=== PATIENT | male | born 1950 | race Caucasian/White ===

== ENCOUNTER 2017-03-07 22:39 | Emergency (ER) | payer OTHER, MEDICARE ==
[~2017-03-07] VITALS: Ht 165.1 cm; Wt 76.2 kg
[~2017-03-07 22:39] MED LIST: ASPI325T PO; ATOR40TA PO; CALC500T36 PO; CHIL1CHW5 PO; LIPI20TA PO; MOTR200T44 PO; NADO20TA PO; NICO14DI20 TD; NICO21PAT TD; NUCY75TA8 PO; OMEP40CA2 PO; PLAV75TA38 PO; SIMV20TA2 PO; TIZA4CAP3 PO; XANA0.5T PO
[2017-03-07] MEDS ORDERED: ASPI32ECTA PO (23:06)
[2017-03-08 00:33] VITALS: BP 136/88
--- NOTE | 2017-03-08 06:58 | REP ---
Clinical: Post traumatic chest pain. Technique: PA and lateral. Comparison: 07/24/2015. Findings: Mediastinum and cardiac silhouette are normal. Subtle ill-defined increased bibasilar markings (left greater than right) may reflect acute atelectasis. A very subtle nondisplaced fracture along the anterolateral margin of the left sixth rib cannot definitively be excluded and may warrant physical examination and follow-up. Impression: Subtle ill-defined increased basilar markings may reflect acute atelectasis. Cannot exclude subtle nondisplaced lateral left sixth rib fracture. Signed by Navneet Rivera MD 03/08/2017 06:49 A
--- NOTE | 2017-03-08 14:15 | ECGEPIP ---
Stationary ECG Study [facility] - ED Test Date: 2017-03-07 Pat Name: CONCHITA ALEJANDRO Department: Room: - Gender: M [employer] Faculty Member: emil : 1950 Requested By: SHARI Worthington Order Number: [id number] Reading MD: Daniel Solorzano Measurements Intervals [place] Rate: 77 P: 64 MT: 200 QRS: 16 QRSD: 94 T: 49 QT: 377 QTc: 427 Interpretive Statements SINUS RHYTHM Electronically Signed On 03-08-2017 14:14:41 EDT by Daniel Solorzano
== END 2017-03-08 00:34 | disposition home or self-care (01) ==
LOC: EDBD 22:39 → M ED 03-08 00:18
DX: R07.9 Chest pain, unspecified (principal); V49.50XA Passenger injured in collision with unspecified motor vehicles in traffic accident, initial encounter; Y92.410 Unspecified street and highway as the place of occurrence of the external cause; Y93.89 Activity, other specified; Y99.9 Unspecified external cause status; I25.10 Atherosclerotic heart disease of native coronary artery without angina pectoris; I25.2 Old myocardial infarction; Z79.82 Long term (current) use of aspirin; Z79.899 Other long term (current) drug therapy

== ENCOUNTER → 2017-08-02 | Outpatient (CLI) | payer MEDICARE, OTHER ==
[~2017-08-02] MED LIST changes: +ASPI325T24 PO; -ATOR40TA PO; +ATOR40TA75 PO; -CHIL1CHW5 PO; +CHIL81CH2 PO; +NUCY75TA3 PO; -NUCY75TA8 PO; +PLAV1TAB2 PO; -PLAV75TA38 PO
--- NOTE | 2017-08-02 13:33 | REP ---
Left upper extremity duplex Doppler venous ultrasound. Real time compression and duplex Doppler evaluation of the left upper extremity deep venous system is performed. The left subclavian, jugular, axillary, brachial, basilic and cephalic veins are fully compressible where accessible with transducer pressure, and demonstrate no intraluminal thrombus and normal venous waveforms. There is no evidence of deep venous thrombosis. Impression: No evidence of deep venous thrombosis of the left upper extremity deep vein system. Signed by Kwame Obando MD 08/02/2017 01:24 P
== END ==
LOC: M RAD 12:36
PROVIDERS: ATTEND Psychiatry & Neurology Neurology
DX: R22.32 Localized swelling, mass and lump, left upper limb (principal)

== ENCOUNTER → 2019-05-12 | Outpatient (CLI) | payer MEDICARE ==
[~2019-05-12] MED LIST changes: +ASPI-1 PO; +ASPI-255 PO; +ASPI-286 PO; -ASPI325T PO; -ASPI325T24 PO; -CALC500T36 PO; +CALC500T61 PO; -CHIL81CH2 PO; +NICO21DI3 TD; -NICO21PAT TD; +NUCY75TA11 PO; -NUCY75TA3 PO; +TIZA4CAP PO; -TIZA4CAP3 PO
[2019-05-12 13:22] LABS: ALBUMIN 3.5 GM/DL (3.2-5.2); ALT/SGPT 29 U/L (12-78); BASO # 0.1 10^3/uL (0.0-0.2); BASO % 0.9 % (0.0-1.0); BILIRUBIN,TOTAL 0.5 MG/DL (0.2-1.0); BLOOD UREA NITROGEN 20 MG/DL (7-18); CALCIUM LEVEL 9.2 MG/DL (8.8-10.2); CARBON DIOXIDE LEVEL 31 MEQ/L (21-32); CHLORIDE LEVEL 103 MEQ/L (98-107); CHOLESTEROL LEVEL 123 MG/DL (<200); CREATININE FOR GFR 1.14 MG/DL (0.70-1.30); EOS # 0.2 10^3/uL (0.0-0.50); EOS % 3.5 % (0.0-3.0); GLOMERULAR FILTRATION RATE > 60.0 (>49); GLUCOSE, FASTING 80 MG/DL (70-100); HDL CHOLESTEROL 60 MG/DL (>40); HEMATOCRIT 48.2 % (42.0-52.0); HEMOGLOBIN 16.1 g/dl (13.5-17.5); LDL CHOLESTEROL 48 MG/DL (<100); LYMPH # 2.2 10^3/uL (1.5-4.5); LYMPH % 32.9 % (24.0-44.0); MEAN CORPUSCULAR HEMOGLOBIN 30.8 pg (27.0-33.0); MEAN CORPUSCULAR HGB CONC 33.4 g/dl (32.0-36.5); MEAN CORPUSCULAR VOLUME 92.2 fl (80.0-96.0); MONO # 0.6 10^3/uL (0.0-0.8); MONO % 8.7 % (0.0-5.0); NEUTROPHILS # 3.6 10^3/uL (1.8-7.7); NEUTROPHILS % 53.3 % (36.0-66.0); NON-HDL-C 63 MG/DL; PLATELET COUNT, AUTOMATED 201 10^3/uL (150-450); POTASSIUM SERUM 4.4 MEQ/L (3.5-5.1); RED BLOOD COUNT 5.23 10^6/uL (4.30-6.10); SODIUM LEVEL 139 MEQ/L (136-145); TOTAL PROTEIN 7.4 GM/DL (6.4-8.2); TRIGLYCERIDES LEVEL 76 MG/DL (<150); WHITE BLOOD COUNT 6.8 10^3/uL (4.0-10.0)
[2019-05-12 13:30] LABS: VITAMIN B12 LEVEL 670 PG/ML
[2019-05-12 13:31] LABS: FOLATE 7.3 NG/ML
[2019-05-12 13:40] LABS: HEMOGLOBIN A1c 5.4 %
[2019-05-15 14:08] LABS: VITAMIN B1 LEVEL WHOLE BLOOD 122.6 nmol/L (66.5-200.0); VITAMIN B6,PYRIDOXAL PHOSPHATE 6.1 ug/L (5.3-46.7); VITAMIN E(ALPHA TOCOPHEROL) 6.4 mg/L (9.0-29.0); VITAMIN E(GAMMA TOCOPHEROL) 1.1 mg/L (0.5-4.9)
== END ==
LOC: M WUC 08:38
PROVIDERS: ATTEND Psychiatry & Neurology Neurology
DX: I63.9 Cerebral infarction, unspecified (principal); E11.9 Type 2 diabetes mellitus without complications; E78.5 Hyperlipidemia, unspecified; D51.9 Vitamin B12 deficiency anemia, unspecified; E51.9 Thiamine deficiency, unspecified

== ENCOUNTER 2021-04-21 13:46 | Day surgery (SDC) | payer MEDICARE, OTHER ==
[~2021-04-21] VITALS: Ht 162.6 cm; Wt 75.0 kg
[~2021-04-21 13:46] MED LIST changes: -OMEP40CA2 PO; +OMEP40CA4 PO; -SIMV20TA2 PO; +SIMV20TA22 PO; +ceFAZolin SOD 1 GM in D5W MINI-BAG PLUS 50 ML IV ONE
[2021-04-21] MEDS ORDERED: GNP250TA9 PO (14:35)
[2021-04-21] MEDS ORDERED: VITAE40CA PO (14:36)
[2021-04-21] MEDS ORDERED: VITAD400CA FT (14:36)
[2021-04-21] MEDS ORDERED: CELE1CAP4 PO (14:38)
[2021-04-21] MEDS ORDERED: ECOT81TA5 PO (14:38)
[2021-04-21] MEDS ORDERED: LISI-898 PO (14:39)
[2021-04-21] MEDS ORDERED: CLOP75TA2 PO (14:39)
[2021-04-21] MEDS ORDERED: NAMZ1CAP2 PO (14:40)
[2021-04-21] MEDS ORDERED: FLOM0.4C39 PO (14:41)
[2021-04-21] MEDS ORDERED: NORT25CA2 PO (14:43)
[2021-04-21] MEDS ORDERED: KEPP1TAB PO (14:43)
[2021-04-21] MEDS ORDERED: TRAZ1TAB14 PO (14:43)
[2021-04-21] MEDS ORDERED: LR 1,000 ML IV ONE (14:55)
[2021-04-21] MEDS ORDERED: LIDOCAINE 1% SDV 30ML VIAL As Ordered ONE (15:21)
[2021-04-21] MEDS ORDERED: LIDOCAINE 2% INJ 100 MG/5 ML SYRINGE As Ordered ONE (15:23)
[2021-04-21] MEDS ORDERED: MIDAZOLAM INJ 2MG/2ML VIAL (J2250 PER 1MG) As Ordered ONE (15:23)
[2021-04-21] MEDS ORDERED: ONDANSETRON 4MG/2ML VIAL As Ordered ONE (15:23)
[2021-04-21] MEDS ORDERED: propofoL 200 MG/20 ML VIAL As Ordered ONE (15:23)
[2021-04-21] MEDS ORDERED: fentaNYL 100 MCG/2 ML INJECTION (J3010) As Ordered ONE (15:24)
[2021-04-21] MEDS ORDERED: LIDOCAINE 2% 100MG/5ML SDV (FOR ANES.) As Ordered ONE (15:26)
--- NOTE | 2021-04-21 16:35 | REP ---
INDICATION: LOOP RECORDER EXPLANT, POST OP XRAY IN OR COMPARISON: 03/07/2017 TECHNIQUE: Portable AP view of the chest FINDINGS: Loop recorder has been removed. No foreign body identified. Diffuse chronic interstitial changes noted bilaterally. The mediastinum and cardiac silhouette suggest mild cardiomegaly. No discrete focal consolidation, effusion, or pneumothorax. Skeletal structures intact. IMPRESSION: Chronic appearing interstitial changes. No foreign body identified. No pneumothorax. <Electronically signed by Navneet Rivera > 04/21/21 [id number]
[2021-04-21 17:12] VITALS: BP 143/80
--- NOTE | 2021-04-21 19:16 | RO ---
OPERATIVE NOTE DATE OF OPERATION: 04/21/2021 PREOPERATIVE DIAGNOSIS: Subcutaneous cardiac rhythm monitor in situ. POSTOPERATIVE DIAGNOSIS: Subcutaneous cardiac rhythm monitor in situ. FINDINGS: Subcutaneous cardiac rhythm monitor in situ. PROCEDURE PERFORMED: Removal of subcutaneous cardiac rhythm monitor. SURGEON: Zeke Corado M.D. ASSISTANT PROFESSOR OF DRAMA: None. ANESTHESIA: Local anesthetic (Lidocaine 1%)/monitored anesthetic care. SPECIMENS: Old subcutaneous Medtronic LINQ cardiac rhythm monitor. ESTIMATED BLOOD LOSS: Less than 1 mL. BLOOD PRODUCTS: None placed. DRAINS: None. COMPLICATIONS: None. DESCRIPTION OF PROCEDURE: The patient was prepped and draped over the left anterior test. Lidocaine 1% was used as a local anesthetic. An incision was made parallel to the original incision, but just a few mm lateral to the original incision using a #15 blade. During attempts to extract the loop recorder by trying to commissions analyst it with a snap, the snap I was using broke with one of the pieces of the snap being in the subcutaneous tissue of the chest. I was able to use some forceps to remove this retained fragment of the snap. It looked like the entire piece was successfully removed. Prior to leaving the operating room, a chest x-ray was taken and I spoke with the radiologist who gave me a stat read, to let me know that there were no retained fragments in the patient's chest wall of this broken snap. After removing the broken piece of the snap, I continued on and used a stronger snap and was successful at removing the loop recorder from the pocket. The incision line was closed temporarily using a 4-0 Biosyn suture applied subcuticular with the free ends protruding 1 cm from the skin on both ends of the incision line. This was held under tension while three layers of Dermabond were applied. The Biosyn suture was then pulled through the incision line and removed entirely. The patient tolerated the procedure well without any immediate complications.
== END 2021-04-21 17:10 | disposition home or self-care (01) ==
LOC: M SDC 13:46
PROVIDERS: ATTEND Internal Medicine Cardiovascular Disease
DX: Z45.09 Encounter for adjustment and management of other cardiac device (principal); I25.10 Atherosclerotic heart disease of native coronary artery without angina pectoris; E78.00 Pure hypercholesterolemia, unspecified; Z86.73 Personal history of transient ischemic attack (TIA), and cerebral infarction without residual deficits; Z87.891 Personal history of nicotine dependence; I63.9 Cerebral infarction, unspecified; J44.9 Chronic obstructive pulmonary disease, unspecified; K21.9 Gastro-esophageal reflux disease without esophagitis; M54.9 Dorsalgia, unspecified; Z95.818 Presence of other cardiac implants and grafts; Z79.899 Other long term (current) drug therapy; Z79.82 Long term (current) use of aspirin; Z79.02 Long term (current) use of antithrombotics/antiplatelets
CPT/HCPCS: 33286; 71045; J0690; J2250; J2405; J3010; U0002

== ENCOUNTER → 2023-05-17 | Outpatient (CLI) | payer MEDICARE, OTHER ==
[~2023-05-17] MED LIST changes: -ASPI-286 PO; +CELE1CAP4 PO; +CLOP75TA2 PO; +CLOP75TA99 PO; +E-Z-GAS II EFFERVESCENT PACKET (SODIUM BICARB./CITRIC ACID/SIMETHICONE) As Ordered ONE; +E-Z-HD 98% w/w 340GM SUSP BTL As Ordered ONE; +E-Z-PAQUE 96% w/w SUSP 176GM BTL As Ordered ONE; +ECOT81TA5 PO; +FLOM0.4C39 PO; +GNP250TA9 PO; +ISOVUE-370 76% 100ML VIAL As Ordered ONE; +KEPP1TAB PO; +LISI5TAB11 PO; +NAMZ1CAP2 PO; +NORT25CA2 PO; -PLAV1TAB2 PO; +SM C81CH2 PO; +TRAZ1TAB14 PO; +VITAD400CA FT; +VITAE40CA PO; -ceFAZolin SOD 1 GM in D5W MINI-BAG PLUS 50 ML IV ONE
== END ==
LOC: M RAD 07:57
PROVIDERS: ATTEND Otolaryngology
DX: R13.10 Dysphagia, unspecified (principal); Z85.828 Personal history of other malignant neoplasm of skin; R93.3 Abnormal findings on diagnostic imaging of other parts of digestive tract
CPT/HCPCS: 70491; 74220; Q9967

== ENCOUNTER → 2023-06-08 | Outpatient (REF) | payer MEDICARE, OTHER ==
[~2023-06-08] MED LIST changes: -E-Z-GAS II EFFERVESCENT PACKET (SODIUM BICARB./CITRIC ACID/SIMETHICONE) As Ordered ONE; -E-Z-HD 98% w/w 340GM SUSP BTL As Ordered ONE; -E-Z-PAQUE 96% w/w SUSP 176GM BTL As Ordered ONE; -ISOVUE-370 76% 100ML VIAL As Ordered ONE
[2023-06-08 17:47] LABS: APPEARANCE, URINE CLEAR (CLEAR); BACTERIA, URINE AUTO NEGATIVE (NEGATIVE); BILIRUBIN, URINE AUTO NEGATIVE (NEGATIVE); BLOOD, URINE BLOOD NEGATIVE (NEGATIVE); COLOR, URINE YELLOW (YELLOW); GLUCOSE, URINE (UA) AUTO NEGATIVE (NEGATIVE); KETONE, URINE AUTO NEGATIVE (NEGATIVE); LEUKOCYTE ESTERASE, URINE AUTO NEGATIVE (NEGATIVE); NITRITE, URINE AUTO NEGATIVE (NEGATIVE); PROTEIN, URINE AUTO NEGATIVE (NEGATIVE); RBC, URINE AUTO 1 /HPF (0-3); SPECIFIC GRAVITY URINE AUTO 1.016 (1.002-1.035); SQUAMOUS EPITHELIAL CELL UR AU 0 /HPF (0-6); WBC, URINE AUTO 1 /HPF (0-3)
== END ==
LOC: M SMT 17:07
PROVIDERS: ATTEND Urology
DX: R39.9 Unspecified symptoms and signs involving the genitourinary system (principal)

== ENCOUNTER → 2024-06-12 | Outpatient (CLI) | payer MEDICARE, OTHER ==
[~2024-06-12] MED LIST changes: +BARIUM SULFATE 700 MG TABLET (E-Z-DISK) As Ordered ONE; +E-Z-PAQUE 96% w/w SUSP 176GM BTL As Ordered ONE; +VARIBAR NECTAR 40% w/v 240ML SUSP BTL As Ordered ONE; +VARIBAR PUDDING 40% w/v 230ML TUBE As Ordered ONE
== END ==
LOC: M RAD 11:16
PROVIDERS: ATTEND Otolaryngology
DX: R13.10 Dysphagia, unspecified (principal)